=== PATIENT | female | born 2000 | race African-American/Black ===

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

== ENCOUNTER 2022-09-29 18:10 | Emergency (ER) | payer MEDICAID, OTHER | END 2022-09-29 18:58 | disposition home or self-care (01) | LOC: MADERS 18:10 | DX: L30.9 Dermatitis, unspecified (principal); J45.909 Unspecified asthma, uncomplicated | CPT/HCPCS: 99282 ==